=== PATIENT | male | born 1985 | race Caucasian/White ===

== ENCOUNTER 2016-08-02 00:42 | Emergency (ER) | payer OTHER ==
[2016-08-02 01:01] VITALS: BP 136/80
[2016-08-02] MEDS ORDERED: Lidocaine 2%Visc 15ml 20 MG/ML UDC PO ONE (01:28)
[2016-08-02] MEDS ORDERED: Lidocaine 1% 5ml(IM or SUTURE)(PAIN CLINIC) IJ ONE (01:29)
[2016-08-02] MEDS ORDERED: cefTRIAXone SODIUM 1 GM VIAL IM ONE (01:29)
[2016-08-02] MEDS ORDERED: oxyCODONE/ACETAMINOPHEN 5/325 TABLET PO ONE (01:30)
--- NOTE | 2016-08-02 07:17 | ED Physician Documentation ---
Sore Throat/Dental Pain - HISTORIAN Historian: patient - HPI Stated Complaint: dental pain Chief Complaint: Dental Pain Additional Information: x 2 weeks, worse, failed amoxicillin Onset: days ago (14) Context: Dental Caries Associated Symptoms: R ear pain Worsened By: nothing Further Comments: no - ROS CONST: no problems CVS/RESP: none GI/: denies: problems urinating, nausea, vomiting MS/SKIN/LYMPH: denies: muscle aches, rash, leg swelling, ankle swelling NEURO/PSYCH: none - PAST HX Past History: other (cardiac disease with multiple surgeries) Other History: none Immunizations: referred to PCP Allergies/Adverse Reactions: Allergies Allergy/AdvReac Type Severity Reaction Status Date / Time bee pollen [Bee Pollen] Allergy Intermediate other Verified 08/02/16 00:52 peppermint [Peppermint] Allergy Intermediate other Verified 08/02/16 00:52 diazepam [From Valium] AdvReac Intermediate other Verified 08/02/16 00:52 Home Medications: Ambulatory Orders Medication Instructions Recorded Cephalexin [Keflex] 1,000 mg PO BID #40 capsule 08/02/16 Ketorolac Tromethamine [Toradol] 10 mg PO QID #20 tablet 08/02/16 - SOCIAL HX Smoking History: non-smoker Alcohol Use: none Drug Use: none - FAMILY HX Family History: No - VITAL SIGNS Vital Signs: Vital Signs Temp Pulse Resp BP Pulse Ox 98.6 F 86 16 136/80 98 08/02/16 01:55 08/02/16 01:55 08/02/16 01:55 08/02/16 01:55 08/02/16 01:55 - REVIEWED ASSESSMENTS Nursing Assessment Reviewed: Yes Vitals Reviewed: Yes Progress - Results/Orders Results/Orders: no testing ordered - Progress Progress: pt. given rocephin 1 gram im in er, percocet 5/325 p.o. in er Critical Care Note - Critical Care Note Total Time (mins): 0 ED Results Lab/Radiology - Lab Results Lab Results: none ordered - Radiology Radiology Impressions: none ordered - Orders Orders: ED Orders Category Date Time Status Lidocaine 1% 5ml(IM or SUTURE) [Xylocaine] Med 08/02/16 01:29 Discontinued 50 mg IJ NOW ONE Lidocaine 2%Visc 15ml [Xylocaine] Med 08/02/16 01:28 Discontinued 15 mg PO NOW ONE cefTRIAXone SODIUM [Rocephin] Med 08/02/16 01:29 Discontinued 1 gm IM NOW ONE oxyCODONE HCL/ACETAMINOPHEN [Percocet 5-325 mg Tablet] Med 08/02/16 01:30 Discontinued 1 each PO NOW ONE Dental Pain Physical Exam - EXAM General Appearance: alert, moderate distress Head/Neck: trachea midline, mandibular swelling (R) Eyes: eyes nml inspection, PERRL Mouth/Throat: lips nml, pharynx nml, voice nml, no drooling, gum swelling around teeth. No: uvular shift Ear/Nose: nml inspection Respiratory: no resp. distress, breath sounds nml CVS: reg. rate & rhythm, heart sounds nml Abdomen: soft, no organomegaly, normal bowel sounds, no abdominal bruit, no distension, non-tender Extremities: non-tender, nml ROM Skin: warm/dry, normal color Neuro/Psych: No: weakness, numbness, anxiety Discharge Clincal Impression: Dental caries Prescriptions: Cephalexin [Keflex] 1,000 mg PO BID #40 capsule Ketorolac Tromethamine [Toradol] 10 mg PO QID #20 tablet Referrals: Primary Doctor,No [Primary Care Provider] - 2 Days Home Medications: Ambulatory Orders Cephalexin [Keflex] 1,000 mg PO BID #40 capsule 08/02/16 Ketorolac Tromethamine [Toradol] 10 mg PO QID #20 tablet 08/02/16 Comments: discharged in stable condition with scripts as above Condition: Stable Disposition: 01 HOME, SELF-CARE Decision to Admit: NO Decision Time: 01:50
== END 2016-08-02 01:55 | disposition home or self-care (01) ==
LOC: ED 00:42
DX: K02.9 Dental caries, unspecified (principal)
CPT/HCPCS: A9270; J0696; 96372; 99283

== ENCOUNTER 2017-07-20 21:48 | Emergency (ER) | payer OTHER ==
[2017-07-20] MEDS: KETOROLAC TROMETHAMINE 60 MG/2 ML VIAL IM ONE (22:02)
--- NOTE | 2017-07-20 22:05 | ED Physician Documentation ---
Sore Throat/Dental Pain - HISTORIAN Historian: patient - HPI Stated Complaint: Dental Pain Chief Complaint: Dental Pain Onset: days ago (3) Context: Dental Caries Further Comments: yes (32 year old male presents with complaint of dental caries. Pain x 3 days) - ROS CONST: no problems CVS/RESP: none GI/: denies: nausea, vomiting MS/SKIN/LYMPH: denies: muscle aches, rash, leg swelling, ankle swelling, other NEURO/PSYCH: none - PAST HX Past History: other (CABG, PPm) Allergies/Adverse Reactions: Allergies Allergy/AdvReac Type Severity Reaction Status Date / Time bee pollen [Bee Pollen] Allergy Intermediate other Verified 07/20/17 21:57 peppermint [Peppermint] Allergy Intermediate other Verified 07/20/17 21:57 diazepam [From Valium] AdvReac Intermediate other Verified 07/20/17 21:57 Home Medications: Ambulatory Orders Medication Instructions Recorded Cephalexin [Keflex] 1,000 mg PO BID #40 capsule 08/02/16 Ketorolac Tromethamine [Toradol] 10 mg PO QID #20 tablet 08/02/16 Penicillin V Potassium [Pen V K] 500 mg PO QID #40 tablet 07/20/17 - SOCIAL HX Smoking History: cigarettes - FAMILY HX Family History: No - VITAL SIGNS Vital Signs: Vital Signs Temp Pulse Resp BP Pulse Ox 97.3 F L 90 18 161/81 99 07/20/17 21:50 07/20/17 21:50 07/20/17 21:50 07/20/17 21:50 07/20/17 21:50 - REVIEWED ASSESSMENTS Nursing Assessment Reviewed: Yes Vitals Reviewed: Yes ED Results Lab/Radiology - Orders Orders: ED Orders Category Date Time Status Ketorolac Tromethamine [Toradol] Med 07/20/17 22:02 Once 60 mg IM NOW ONE Dental Pain Physical Exam - EXAM General Appearance: mild distress Mouth/Throat: lips nml, gums nml, pharynx nml, voice nml, no drooling, no air way problems, no thrush, membranes nml, widespread dental decay, other (#28, #38 , #37 - decay to gumline) Respiratory: no resp. distress CVS: reg. rate & rhythm Abdomen: soft Skin: normal color, warm/dry, NR, INT, PAL, DR Neuro/Psych: No: weakness Discharge Clincal Impression: Dental caries Prescriptions: Penicillin V Potassium [Pen V K] 500 mg PO QID #40 tablet Referrals: Primary Doctor,No [Primary Care Provider] - 2 Days Additional Instructions: Dental Pain Ibuprofen 800mg every 8 hours x 3 days Tylenol 650-1000mg every 4 hours as needed for pain, limit your dose to 4G in 24 hours. Over the counter [employer] - follow package directions. 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 See your dentist as soon as possible Condition: Stable Disposition: 01 HOME, SELF-CARE Decision to Admit: NO Decision Time: 22:04
[2017-07-20 22:33] VITALS: BP 161/81
== END 2017-07-20 22:22 | disposition home or self-care (01) ==
LOC: ED 21:48
DX: K02.9 Dental caries, unspecified (principal)
CPT/HCPCS: 96372; 99282; J1885

== ENCOUNTER 2017-08-07 05:27 | Emergency (ER) | payer OTHER ==
[2017-08-07 05:45] VITALS: BP 140/94
[2017-08-07] MEDS ORDERED: KETOROLAC TROMETHAMINE 60 MG/2 ML VIAL IM ONE (06:34)
--- NOTE | 2017-08-07 06:38 | ED Physician Documentation ---
Sore Throat/Dental Pain - HISTORIAN Historian: patient - HPI Stated Complaint: Right side dental pain Chief Complaint: Dental Pain Onset: days ago Context: Dental Caries Further Comments: yes (32 year old male patient presents with complaint of right upper dental pain. Patient was seen in ER 1 month ago for left side dental pain.) - ROS CONST: no problems CVS/RESP: none GI/: denies: nausea NEURO/PSYCH: none - PAST HX Past History: gum disease Other History: other (CABG, PPM) Allergies/Adverse Reactions: Allergies Allergy/AdvReac Type Severity Reaction Status Date / Time bee pollen [Bee Pollen] Allergy Intermediate other Verified 08/07/17 05:46 peppermint [Peppermint] Allergy Intermediate other Verified 08/07/17 05:46 diazepam [From Valium] AdvReac Intermediate other Verified 08/07/17 05:46 Home Medications: Ambulatory Orders Medication Instructions Recorded Penicillin V Potassium [Pen V K] 500 mg PO QID #40 tablet 08/07/17 - SOCIAL HX Smoking History: cigarettes - FAMILY HX Family History: No - VITAL SIGNS Vital Signs: Vital Signs Temp Pulse Resp BP Pulse Ox 98.2 F 75 16 140/94 97 08/07/17 05:30 08/07/17 05:30 08/07/17 05:30 08/07/17 05:30 08/07/17 05:30 - REVIEWED ASSESSMENTS Nursing Assessment Reviewed: Yes Vitals Reviewed: Yes ED Results Lab/Radiology - Orders Orders: ED Orders Category Date Time Status Ketorolac Tromethamine [Toradol] Med 08/07/17 06:34 Once 60 mg IM NOW ONE Dental Pain Physical Exam - EXAM General Appearance: mild distress Mouth/Throat: gum swelling around teeth, widespread dental decay, other (left upper back molars x 3 with decay to gumline #17, 16, 15) Respiratory: no resp. distress, breath sounds nml CVS: reg. rate & rhythm, heart sounds nml Abdomen: soft, no organomegaly, normal bowel sounds, no abdominal bruit, no distension Skin: normal color, warm/dry, NR, INT, PAL, DR Neuro/Psych: No: weakness Discharge Clincal Impression: Dental caries, Pain due to dental caries Prescriptions: Penicillin V Potassium [Pen V K] 500 mg PO QID #40 tablet Referrals: Parker Fry MD [Primary Care Provider] - 2 Days Condition: Stable Disposition: 01 HOME, SELF-CARE Decision to Admit: NO Decision Time: 06:50
== END 2017-08-07 06:50 | disposition home or self-care (01) ==
LOC: ED 05:27
DX: K02.9 Dental caries, unspecified (principal)
CPT/HCPCS: 96372; 99282; J1885

== ENCOUNTER 2017-10-21 20:37 | Emergency (ER) | payer OTHER ==
--- NOTE | 2017-10-21 21:53 | ED Physician Documentation ---
Upper Extremity Injury - HISTORIAN Historian: patient - HPI Stated Complaint: Rt shoulder pain for over a month, been increasing in discomfort Chief Complaint: Shoulder Injury/ Pain Additional Information: Right shoulder pain for a month (points to right trap 0. thinks he tore rotator cuff. Has been taking 800 mg ibuprofen bid and 1000 mg tylenol bid. pain worse with activity, work. Hasn't seen anyone for this. No injury to right shoulder. - ROS CONST: no problems - PAST HX Past History: Rt handed Allergies/Adverse Reactions: Allergies Allergy/AdvReac Type Severity Reaction Status Date / Time bee pollen [Bee Pollen] Allergy Intermediate other Verified 10/21/17 21:09 peppermint [Peppermint] Allergy Intermediate other Verified 10/21/17 21:09 diazepam [From Valium] AdvReac Intermediate other Verified 10/21/17 21:09 Home Medications: Ambulatory Orders Medication Instructions Recorded NK [NK] 10/21/17 - SOCIAL HX Smoking History: non-smoker - FAMILY HX Family History: no significant history - VITAL SIGNS Vital Signs: Vital Signs Temp Pulse Resp BP Pulse Ox 83 18 158/99 97 10/21/17 20:37 10/21/17 20:37 10/21/17 20:37 10/21/17 20:37 - REVIEWED ASSESSMENTS Nursing Assessment Reviewed: Yes Vitals Reviewed: Yes Upper Extremity Injury Physic - Physical Exam General Appearance: no acute distress, alert Hand: normal inspection, no evidence of injury Wrist: normal inspection, no evidence of injury Elbow/Forearm: normal inspection, no evidence of injury Shoulder: normal inspection, soft tissue tenderness (right trap spasm, tender to palpation. Shoulder abduction 80 degrees or more produces pain right trap) Neuro/Vascular/Tendon: no vascular compromise (right radial pulse 2+), motor nml , sensation nml Skin: warm,dry Neck/Back: nml inspection Resp/CVS: breath sounds nml (no resp distress) Discharge Clincal Impression: Right shoulder pain Referrals: Parker Fry MD [Primary Care Provider] - 2 Days Additional Instructions: Ice to the sore area for 30 minutes of each hour you are awake or you can apply gentle heat. Continue the ibuprofen and tylenol. Follow up with orthopedics if you are not getting better in a week. Condition: Good Disposition: 01 HOME, SELF-CARE Decision to Admit: NO Decision Time: 21:50
[2017-10-21] MEDS ORDERED: CYCLOBENZAPRINE HCL 5 MG TABLET PO ONE (22:07)
[2017-10-21 22:36] VITALS: BP 155/92
== END 2017-10-21 22:25 | disposition home or self-care (01) ==
LOC: ED 20:37
DX: M25.511 Pain in right shoulder (principal)